=== PATIENT | male | born 1955 | race Two or more races ===

== ENCOUNTER 2017-07-31 20:59 | Emergency (ER) | payer BC, OTHER ==
[~2017-07-31] VITALS: Ht 175.3 cm; Wt 84.4 kg
--- NOTE | 2017-07-31 21:12 | NUR ---
PT AMBULATORY W/ A WALKER TO ER BED 09. SEND BY PMD FOR WOUND CHECK. L BIG TOE AMPUTATION X 5 DAYS. PT C/O PAIN AND SAID TOOK OXY 3-4 HOURS AGO. STABLE VITALS. AWAITING MD [place].
--- NOTE | 2017-07-31 21:49 | NUR ---
CARLOS HARTLEY AT BEDSIDE FOR EVAL.
--- NOTE | 2017-07-31 22:17 | NUR ---
CALLED NURSING SUP. FOR MS BED
[2017-07-31 22:18] LABS: BASOPHILS % (AUTO) 0.3 % (0.0-2.0); EOSINOPHILS # (AUTO) 0.2 /CMM (0.0-0.7); EOSINOPHILS % (AUTO) 3.2 % (0.0-6.0); HEMATOCRIT 34 % (39-51); HEMOGLOBIN 11.8 g/dL (13.5-17.5); LYMPHOCYTES # (AUTO) 1.1 /CMM (0.8-4.8); LYMPHOCYTES % (AUTO) 15.2 % (20.0-44.0); MEAN CORPUSCULAR HEMOGLOBIN 29 PG (26.0-33.0); MEAN CORPUSCULAR HGB CONC 34 g/dl (31.0-36.0); MEAN CORPUSCULAR VOLUME 84 fL (80-96); MONOCYTES # (AUTO) 0.8 /CMM (0.1-1.30); MONOCYTES % (AUTO) 11.6 % (2.0-12.0); NEUTROPHILS # (AUTO) 4.9 /CMM (1.8-8.9); NEUTROPHILS % (AUTO) 69.7 % (43.0-81.0); PLATELET COUNT (AUTO) 392 /CMM (150-450); RDW COEFFICIENT OF VARIATION 12.7 (11.5-15.0); RED BLOOD CELL COUNT(AUTO) 4.09 MIL/uL (4.5-6.0); WHITE BLOOD COUNT (AUTO) 7.1 K/uL (4.3-11.0)
--- NOTE | 2017-07-31 22:26 | NUR ---
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
[2017-07-31] MEDS ORDERED: PIPERACILLIN /TAZOBACTAM 3.375 G VIAL IV ONE (22:29)
[2017-07-31] MEDS ORDERED: HYDROCODONE/APAP 5/325MG 1 EACH TABLET PO ONE (22:30)
[2017-07-31] MEDS ORDERED: HYDROCODONE/APAP 5/325MG 1 EACH TABLET ONE (22:30)
[2017-07-31] MEDS ORDERED: PIPERACILLIN /TAZOBACTAM 3.375 G in IV D5W 50 ML IV ONE (22:30)
[2017-07-31 22:32] LABS: CALCIUM, SERUM 9.1 mg/dL (8.5-10.1); POTASSIUM 4.4 mmol/L (3.5-5.1)
--- NOTE | 2017-07-31 22:43 | NUR ---
MS 310-1
--- NOTE | 2017-07-31 22:51 | NUR ---
REPORT GIVEN TO VIRGINIA CAMACHO. PT AWAITING TRANSFER TO FLOOR.
[2017-07-31] MEDS ORDERED: BLOOD SUGAR DIAGNOSTIC 1 EACH STRIP VI SCH (23:00)
[2017-07-31] MEDS ORDERED: *INSULIN REGULAR(HUMULIN R)HUM 100 UNIT/ML VIAL SQ PRN (23:00)
[2017-07-31] MEDS ORDERED: INSULIN REGULAR, HUMAN 100 UNIT/ML 3 ML VIAL SQ PRN (23:00)
[2017-07-31] MEDS ORDERED: IV NS 0.9% 500 ML BAG IV ONE (23:00)
[2017-07-31] MEDS ORDERED: DEXTROSE 50%-WATER 50 ML DISP.SYRIN IV PRN (23:00)
[2017-07-31 23:01] VITALS: BP 137/64
[2017-07-31] MEDS ORDERED: AMOX250C PO (23:27)
[2017-07-31] MEDS ORDERED: LOSA50TA21 PO (23:27)
[2017-07-31] MEDS ORDERED: DILT240C88 PO (23:27)
[2017-07-31] MEDS ORDERED: METO50TA16 PO (23:27)
[2017-07-31] MEDS ORDERED: GLIP5TAB13 PO (23:27)
[2017-07-31] MEDS ORDERED: ONDANSETRON HCL/PF 4 MG/2 ML VIAL IVP PRN (23:30)
[2017-07-31] MEDS ORDERED: ACETAMINOPHEN 325 MG TABLET PO PRN (23:30)
[2017-07-31] MEDS ORDERED: LEVOFLOXACIN 500 MG /D5W 100ML 100 ML IV SCH (23:30)
[2017-07-31 23:34] LABS: IRON, SERUM 35 ug/dl (50-175); TOTAL IRON BINDING CAPACITY 239 ug/dl (250-450)
[2017-08-01] MEDS ORDERED: PIPERACILLIN /TAZOBACTAM 2.25 G in IV D5W 50 ML IV SCH ×2
--- NOTE | 2017-08-01 02:39 | NUR ---
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 Pt accepted to [facility] [phone]. # for report [phone]
--- NOTE | 2017-08-01 03:39 | NUR ---
Report given to Alvaro CAMACHO for continuation of care.
--- NOTE | 2017-08-01 04:30 | NUR ---
[facility] AT BEDSIDE FOR TRANSPORT TO [facility].
[2017-08-01] MEDS ORDERED: PANTOPRAZOLE 40 MG TABLET.DR PO SCH (09:00)
== END 2017-08-01 04:30 | disposition short-term general hospital (02) ==
LOC: ER 21:09 → UNDOADMIN 22:58 → TELE 22:58 → ER 08-01 04:30
DX: T81.4XXA Infection following a procedure, initial encounter (principal); E11.9 Type 2 diabetes mellitus without complications; I10 Essential (primary) hypertension
CPT/HCPCS: 36415; 80048-TC; 83540-TC; 85025-TC; 87081-TC; A4606; J1815; J1956; J2543; J7040; J7060; Z7610